=== PATIENT | female | born 1960 | race Caucasian/White ===

== ENCOUNTER 2017-07-26 18:18 | Emergency (ER) | payer OTHER ==
[~2017-07-26] VITALS: Ht 167.6 cm; Wt 90.7 kg
[2017-07-26] MEDS ORDERED: PROTONIX 20 MG20 M1 PO (18:39)
[2017-07-26] MEDS ORDERED: ALLEGRA ALLERG180 MG PO (18:39)
[2017-07-26 19:24] VITALS: BP 161/95
== END 2017-07-26 19:26 | disposition home or self-care (01) ==
LOC: M.ERS 18:18
DX: S63.591A Other specified sprain of right wrist, initial encounter (principal); W01.0XXA Fall on same level from slipping, tripping and stumbling without subsequent striking against object, initial encounter; Y93.89 Activity, other specified; Y92.89 Other specified places as the place of occurrence of the external cause; Y99.8 Other external cause status; I10 Essential (primary) hypertension; Z88.5 Allergy status to narcotic agent

== ENCOUNTER → 2018-02-03 | Outpatient (CLI) | payer OTHER ==
[~2018-02-03] MED LIST: ALLEGRA ALLERG180 MG PO; PROTONIX 20 MG20 M1 PO
== END ==
LOC: M.RAD 13:43
DX: Z12.31 Encounter for screening mammogram for malignant neoplasm of breast (principal)